=== PATIENT | female | born 1970 | race African-American/Black ===

== ENCOUNTER 2016-12-16 07:48 | Day surgery (SDC) | payer BC ==
[~2016-12-16] VITALS: Ht 167.6 cm; Wt 88.5 kg
[~2016-12-16 07:48] MED LIST: ADVIL PM1 TAB OR; ASPIRIN ADULT L81 M2 PO; ATORVASTATIN CA20 MG PO; B12-ACTIVE1 MG PO; BAYER ASA325 MG PO; CETIRIZINE HCL10 MG PO; FERRETTS325 MG PO; FLEXERIL OR; GLYBURIDE2.5 MG OR; GLYBURIDE2.5 MG PO; IBUPROFEN200 M1 OR; INVOKAMET PO; INVOKANA300 MG PO; IRON18 M1 PO; JENTADUETO1 TA1 PO; LEVEMIR1000 UNITS IM; LEVEMIR1000 UNITS SC; LISINOPRIL2.5 MG PO; METFORMIN1000 MG PO; METFORMIN500 M1 OR; PRAVASTATIN10 MG PO; PROTONIX40 MG PO; TRULICITY0.75 MG/0. SC; TRULICITY1.5 MG/0.5 SC; VITAMIN B PO; VITAMIN D1000 UNIT PO
[2016-12-16 09:39] VITALS: BP 116/67
== END 2016-12-16 09:45 | disposition home or self-care (01) | DRG 951 ==
LOC: ENDO 07:48
PROVIDERS: ATTEND Surgery
PROC: 0DJD8ZZ Inspection of Lower Intestinal Tract, Via Natural or Artificial Opening Endoscopic (ICD-10-PCS; principal; 2016-12-16)
DX: Z12.11 Encounter for screening for malignant neoplasm of colon (principal); E11.9 Type 2 diabetes mellitus without complications; Z80.0 Family history of malignant neoplasm of digestive organs; Z79.84 Long term (current) use of oral hypoglycemic drugs

== ENCOUNTER 2017-08-10 12:56 | Emergency (ER) | payer BC ==
[~2017-08-10] VITALS: Ht 167.6 cm; Wt 90.0 kg
[2017-08-10] MEDS ORDERED: METOPROL TAR25 MG PO (13:23)
[2017-08-10 13:46] LABS: HEMATOCRIT 40.6 % (37.0-47.0); HEMOGLOBIN 12.6 g/dl (12.0-16.0); IMMATURE GRANULOCYTES 0.1 % (0.0-1.0); MEAN CELL VOLUME 74.1 fL CALC (80.0-100.0); NEUT# 4.67 thou/uL (2.00-7.15); RED BLOOD COUNT 5.48 mill/uL (4.20-5.60)
[2017-08-10 14:02] LABS: ALBUMIN 4.6 g/dL (3.2-5.0); ALKALINE PHOSPHATASE 76 u/l (38-126); ANION GAP 17 (6-22 (CALC)); BILIRUBIN, TOTAL 0.4 mg/dL (0.0-1.4); BUN 10 mg/dL (7-17); BUN/CREATININE RATIO 18 (12-20 (CALC)); CALCIUM 10.2 mg/dL (8.4-10.2); CARBON DIOXIDE 26 mmol/l (22-30); CHLORIDE 105 mmol/l (95-108); CREATININE 0.6 mg/dL (0.5-1.0); GFR > 60 ML/MIN (>=60 (CALC)); GFR FOR AFR.AMER. > 60 ML/MIN (>=60 (CALC)); GLUCOSE 184 mg/dL (65-105); LIPASE 267 u/l (23-300); POTASSIUM 3.6 mmol/l (3.5-5.1); SGOT/AST 21 u/l (14-36); SGPT/ALT 21 u/l (9-52); SODIUM 145 mmol/l (137-146); TOTAL PROTEIN 7.5 g/dL (6.3-8.2)
[2017-08-10 14:13] LABS: MYOGLOBIN 13 ng/mL (0 - 62)
[2017-08-10 17:08] LABS: URINE BILIRUBIN - DIPSTICK NEGATIVE (NEGATIVE); URINE BLOOD DIPSTICK NEGATIVE (NEGATIVE); URINE COLOR YELLOW; URINE GLUCOSE - DIPSTICK 100 mg/dL (NEGATIVE); URINE KETONE NEGATIVE (NEGATIVE); URINE LEUK ESTERASE NEGATIVE (NEGATIVE); URINE NITRITE - DIPSTICK NEGATIVE (Negative); URINE PH 6.5 (4.5-8.0); URINE PROTEIN - DIPSTICK NEGATIVE (NEG-TRACE); URINE SPECIFIC GRAVITY 1.025; URINE UROBILINOGEN - DIPSTICK 0.2 E.U./dL (0.2)
[2017-08-10 17:28] LABS: URINE CLARITY CLEAR
[2017-08-10 19:26] VITALS: BP 135/94
== END 2017-08-10 19:26 | disposition home or self-care (01) | DRG 313 ==
LOC: ED 12:56
PROVIDERS: Emergency Medicine
DX: R07.89 Other chest pain (principal); I10 Essential (primary) hypertension; R06.02 Shortness of breath; R10.13 Epigastric pain